=== PATIENT | female | born 1985 | race African-American/Black ===

== ENCOUNTER 2017-01-30 09:34 | Emergency (ER) | payer BC ==
[~2017-01-30] VITALS: Ht 165.1 cm; Wt 63.5 kg
--- NOTE | 2017-01-30 09:34 | NUR ---
PT AMBULATORY TO ER BED 07. C/O FOUL SMELL URINE, VAGINAL ITCHING X 2 WEEKS. PT STATES STARTED HAVING LOWER BACK PAIN X 2 DAYS. PT IS AFEBRILE. VSS. AWAITMORGAN VÁZQUEZ.
--- NOTE | 2017-01-30 10:02 | NUR ---
DR UNGER AT BEDSIDE FOR EVAL.
[2017-01-30 10:05] LABS: APPEARANCE,URINE Slightly Cloudy (CLEAR); BILIRUBIN,URINE Negative (NEGATIVE); BLOOD, URINE Small Ery/uL (NEGATIVE); COLOR,URINE Yellow (YELLOW); KETONES,URINE Negative (NEGATIVE); LEUKOCYTE ESTERASE ,URINE Negative (NEGATIVE); NITRITE, URINE Negative (NEGATIVE); PROTEIN,URINE Negative (NEGATIVE); UGLUCOSE Negative (NEGATIVE); UROBILINOGEN,URINE 0.2 EU/dL (0.2)
[2017-01-30] MEDS ORDERED: IBUPROFEN 600 MG TABLET PO ONE (10:12)
[2017-01-30] MEDS ORDERED: IBUPROFEN 200 MG TABLET ONE (10:13)
[2017-01-30 10:21] LABS: BACTERIA,URINE Rare /HPF (None Seen); SQUAMOUS EPITHELIAL CELL,UR Few /HPF (None Seen); WBC,URINE 0-2 /HPF (0-3)
[2017-01-30] MEDS ORDERED: IBUPROFEN 400 MG TABLET PO ONE (10:30)
[2017-01-30 11:02] LABS: CALCIUM, SERUM 8.8 mg/dL (8.5-10.1); CREATININE 0.7 mg/dL (0.6-1.3); POTASSIUM 4.2 mmol/L (3.5-5.1)
[2017-01-30] MEDS ORDERED: IBUPROFEN 400 MG TABLET ONE (11:08)
[2017-01-30] MEDS ORDERED: CEPHALEXIN MONOHYDRATE 500 MG CAPSULE PO ONE ×2 (11:10→11:30)
--- NOTE | 2017-01-30 11:16 | NUR ---
Patient discharged to home in stable condition. Written and verbal after care instructions given. Patient verbalizes understanding of instruction.
[2017-01-30 11:17] VITALS: BP 115/65
== END 2017-01-30 11:18 | disposition home or self-care (01) ==
LOC: ER 09:37
DX: N30.00 Acute cystitis without hematuria (principal); Z86.711 Personal history of pulmonary embolism
CPT/HCPCS: 36415; 80048; 81001; 84703; 99284; A4606; Z7610; 81000-TC

== ENCOUNTER 2017-03-20 11:20 | Emergency (ER) | payer BC ==
[~2017-03-20] VITALS: Ht 165.1 cm; Wt 78.9 kg
[2017-03-20 11:20] VITALS: BP 118/69
--- NOTE | 2017-03-20 11:28 | NUR ---
AAOX3, CAME TO ER C/O DIFFUSE ABDOMINAL PAIN, NAUSEA AND VOMITING, "CAN'T HOLD ANYTHING DOWN" X "FEW YEARS" PER PATIENT REPORT. "I FEEL LIKE GOING TO POOP ALL THE TIME". SKIN IS WARM AND DRY. RESP IS EVEN AND UNLABORED WITH NAD NOTED. AWAITING MD FOR EVAL.
--- NOTE | 2017-03-20 11:38 | NUR ---
DR KUMAR AT BS FOR EVAL.
[2017-03-20] MEDS ORDERED: ONDANSETRON HCL/PF 4 MG/2 ML VIAL IVP ONE (12:00)
[2017-03-20] MEDS ORDERED: IV NS 0.9% 1,000 ML BAG IV ONE (12:00)
[2017-03-20] MEDS ORDERED: ONDANSETRON HCL/PF 4 MG/2 ML VIAL ONE (12:06)
--- NOTE | 2017-03-20 12:08 | NUR ---
PATIENT REFUSED BLOOD DRAW AFTER FAMILY ASSISTANT MISSED X 1.
[2017-03-20 12:10] LABS: APPEARANCE,URINE Clear (CLEAR); BILIRUBIN,URINE Negative (NEGATIVE); BLOOD, URINE Trace-intact Ery/uL (NEGATIVE); COLOR,URINE Yellow (YELLOW); KETONES,URINE Negative (NEGATIVE); LEUKOCYTE ESTERASE ,URINE Negative (NEGATIVE); NITRITE, URINE Negative (NEGATIVE); PH,URINE 6.5 (5.0-8.0); PROTEIN,URINE Negative (NEGATIVE); UGLUCOSE Negative (NEGATIVE); UROBILINOGEN,URINE 0.2 EU/dL (0.2)
--- NOTE | 2017-03-20 12:10 | NUR ---
Patient eloped from facility. ER MD notified.
--- NOTE | 2017-03-20 12:12 | NUR ---
PATIENT REFUSED IV OUT, INSTEAD PATIENT PULLED THE IV BY HERSELF.
[2017-03-20 12:17] LABS: BACTERIA,URINE Rare /HPF (None Seen); SQUAMOUS EPITHELIAL CELL,UR Few /HPF (None Seen); WBC,URINE 0-2 /HPF (0-3)
--- NOTE | 2017-03-20 12:21 | NUR ---
PT ELOPED TO HER VEHICLE WHERE SHE REMOVED HER OWN IV WITH CATHETER INTACT.
== END 2017-03-20 12:20 | disposition left against medical advice (07) ==
LOC: ER 11:21
DX: R10.84 Generalized abdominal pain (principal); F12.90 Cannabis use, unspecified, uncomplicated; F17.200 Nicotine dependence, unspecified, uncomplicated; Z86.711 Personal history of pulmonary embolism
CPT/HCPCS: 81001; 99283; A4606; Z7610; 81000-TC; J2405; J7030